=== PATIENT | male | born 1985 | race African-American/Black ===

== ENCOUNTER 2016-11-18 07:05 | Emergency (ER) | payer SELFPAY ==
[~2016-11-18] VITALS: Ht 180.3 cm; Wt 94.5 kg
[2016-11-18 07:09] VITALS: Ht 180.3 cm; Wt 94.5 kg
[2016-11-18] MEDS ORDERED: AZIT250T94 PO (07:38)
[2016-11-18] MEDS ORDERED: PROM5SYR2 PO (07:38)
--- NOTE | 2016-11-18 07:41 | ERD ---
ER Documentation Chief Complaint Date/Time DATE: 11/18/16 TIME: 07:40 Chief Complaint cough, congestion & chills x2 days HPI Patient is a 31-year-old male who presents with 3 days of cough with yellow to green colored phlegm as well as subjective fever and chills and body aches at home. He is also had some posttussive vomiting but no vomiting at rest. No nausea. He has been taking Robitussin and TheraFlu which helps temporarily. His son was recently sick and thinks he may have gotten sick from his son. ROS All systems reviewed and are negative except as per history of present illness. Medications Home Meds Active Scripts Promethazine HCl/Codeine (Prometh-Codein 6.25-10 mg/5 ml) 5 Ml Syrup, 5 ML PO QHS, #4 OZ Prov:STEPHON SKY PA-C 11/18/16 Azithromycin* (Zithromax*) 250 Mg Tablet, 250 MG PO .ZPACK DIRECTED, #6 TAB TAKE 500 MG (2 TABS) THE FIRST DAY THEN 250 MG (1 TAB) DAYS 2-5 Prov:STEPHON SKY PA-C 11/18/16 Allergies Allergies: Coded Allergies: No Known Allergy (Unverified , 11/18/16) PMhx/Soc Medical and Surgical Hx: pt denies Medical Hx, pt denies Surgical Hx Hx Alcohol Use: No Hx Substance Use: Yes (marijuana) Hx Tobacco Use: Yes Smoking Status: Current some day smoker FmHx Family History: No diabetes Physical Exam Vitals Vital Signs Date Time Temp Pulse Resp B/P Pulse Ox O2 Delivery O2 Flow Rate FiO2 11/18/16 07:09 98.8 96 18 131/66 93 Physical Exam INITIAL VITAL SIGNS: Reviewed by me GENERAL: Awake, alert and oriented x 4, well appearing, nontoxic, speaking in full sentences. No acute distress HEAD: Atraumatic EAR: No tenderness over the mastoids bilaterally. No exudates in the canals. TMs nonerythematous. NOSE: Normal nose. THROAT: No tonilar erythema or edema. No exudates. Uvula midline. No kissing tonsils. NECK: Supple. No masses. Full range of motion. No meningismus. No midline tenderness. RESPIRATORY: Clear to auscultation bilaterally. Symmetric chest wall rise. No wheezing or rales. No accessory muscle use. CV: Regular rate and rhythm. No murmurs, rubs, or gallops. ABDOMEN: Soft, non-distended. Nontender. Negative [place]. Negative McBurneys point tenderness. No CVA tenderness bilaterally. No guarding. No rebound. Procedures/MDM Patient presents with cough and congestion and subjective fever at home although he is afebrile at this time. Patients is alert, oriented, well appearing, and in no distress with normal vital signs. There is no fever, tachycardia, or tachypnea. I doubt he has pneumonia. He was treated here with prescription for azithromycin and cough syrup. Patient counseled regarding my diagnostic impression and care plan. Prior to discharge all questions answered. Pt agrees with treatment plan and understands strict return precautions. Pt is instructed to follow up with primary care provider within 24-48 hours. Precautionary instructions provided including instructions to return to the ER if not improving or for any worsening or changing symptoms or concerns. Departure Diagnosis: Primary Impression: Bronchitis Condition: Stable Patient Instructions: Bronchitis, Antiobiotic Treatment (Adult) Additional Instructions: Call your primary care doctor TOMORROW for an appointment during the next 1-2 days.See the doctor sooner or return here if your condition worsens before your appointment time. STEPHON SKY PA-C Nov 18, 2016 07:41
== END 2016-11-18 07:59 | disposition home or self-care (01) ==
LOC: FTE 07:05
DX: J20.9 Acute bronchitis, unspecified (principal); F17.210 Nicotine dependence, cigarettes, uncomplicated
CPT/HCPCS: 99284

== ENCOUNTER 2017-03-27 09:30 | Emergency (ER) | END 2017-03-27 11:05 | disposition home or self-care (01) ==

== ENCOUNTER 2017-07-31 08:55 | Emergency (ER) | END 2017-07-31 12:03 | disposition home or self-care (01) ==

== ENCOUNTER 2017-08-03 09:06 | Emergency (ER) | END 2017-08-03 11:56 | disposition home or self-care (01) ==